=== PATIENT | male | born 1985 ===

== ENCOUNTER 2017-01-21 15:44 | Emergency (ER) | payer MEDICAID, OTHER ==
[2017-01-21 15:44] VITALS: BMI 25.1
[2017-01-21 15:51] VITALS: RESP 18
[2017-01-21] MEDS ORDERED: Lidocaine 1% Inj (20ml) INFIL STA (16:13)
[2017-01-21] MEDS ORDERED: Bacitracin 500 Units/gm Oint Foilpak UD TOP ONE (16:13)
[2017-01-21] MEDS ORDERED: Bacitracin 500 Units/gm Oint Foilpak UD ONE (16:17)
[2017-01-21] MEDS ORDERED: Lidocaine 1% Inj (20ml) ONE (16:20)
--- NOTE | 2017-01-21 16:25 | C.PDOC ---
History Of Present Illness 31 year old male presents to the ED with complaints of a cut to his right index finger sustained just prior to arrival. Patient states while throwing away the garbage, a porcelain doll and cut his hand. He notes he received a tetanus shot " 2-3 years ago." Patient denies changes to sensation or other injuries. Time Seen by Provider: 01/21/17 16:01 Chief Complaint (Nursing): Abnormal Skin Integrity History Per: Patient History/Exam Limitations: no limitations Onset/Duration Of Symptoms: Hrs Current Symptoms Are (Timing): Still Present Location Of Injury: Right: Hand (index finger) Quality Of Symptoms: Painful, Other (bleeding) Recent travel outside of the [place]: No Past Medical History Reviewed: Historical Data, Nursing Documentation, Vital Signs Vital Signs: Last Vital Signs Temp 98.2 F 01/21/17 18:27 Pulse 84 01/21/17 18:27 Resp 18 01/21/17 18:27 BP 116/74 01/21/17 18:27 Pulse Ox 98 01/21/17 21:12 - Medical History PMH: Diabetes Surgical History: Tonsillectomy Family History: States: Unknown Family Hx - Social History Hx Alcohol Use: No Hx Substance Use: Yes (marijuana) - Immunization History Hx Tetanus Toxoid Vaccination: No Hx Influenza Vaccination: No Hx Pneumococcal Vaccination: No Review Of Systems Constitutional: Negative for: Fever, Chills Cardiovascular: Negative for: Chest Pain Respiratory: Negative for: Shortness of Breath Gastrointestinal: Negative for: Nausea Musculoskeletal: Positive for: Hand Pain (right index finger laceration ) Neurological: Negative for: Weakness, Numbness Physical Exam - Physical Exam Appears: Non-toxic Skin: Warm, Dry, Other (4 cm V-shaped laceration to the right index finger) Head: Atraumatic, Normacephalic Eye(s): bilateral: Normal Inspection, EOMI Nose: Normal Oral Mucosa: Moist Neck: Normal ROM, Supple Chest: Symmetrical, No Deformity Respiratory: No Accessory Muscle Use Extremity: Normal ROM, Tenderness, Capillary Refill (< 2 sec), No Swelling Pulses: Left Radial: Normal, Right Radial: Normal Neurological/Psych: Oriented x3, Normal Speech, Normal Cognition, Normal Motor, Normal Sensation ED Course And Treatment O2 Sat by Pulse Oximetry: 98 (room air) - Other Rad Right Index Finger X-Ray X-Ray: Viewed By Me, Read By Radiologist Interpretation: IMPRESSION: Soft tissue laceration and swelling at the level of the mid to distal posterior 2nd digit. No acute displaced fracture identified. Instructed patient on proper wound care and importance of following up for suture removal in 7-10 days. Following laceration repair, finger splint was applied by technical marketing engineer. Progress Note: Finger splint applied by swedish masseuse. Laceration - Laceration Repair Right Index Finger Wound Length (In cm): 4cm Description Of Wound: Irregular (irregular flab ) Wound Cleansed With: Betadine, Sterile Saline Anesthesia: Lidocaine 2%, With Epi Wound Examination: Irrigated With Saline, No FB With Wound Exploration, No Tendon Injury With Wound Exploration Wound Debridement/Revision: Wound Debrided Wound Closure: Suture (8) Suture Technique And Material Used: Interrupted, Prolene (5-0 ) Wound Complexity: Simple Disposition - Disposition Disposition: HOME/ ROUTINE Disposition Time: 18:14 Condition: STABLE Additional Instructions: Wound check in 2 days. Suture removal in 10 days. Return to ER if symptoms persist or worsen. Instructions: Finger Laceration (ED) Forms: [facility] (Kazakh) - Clinical Impression Clinical Impression: Finger laceration - Scribe Statement The provider has reviewed the documentation as recorded by the Scribe Hayley Beltran All medical record entries made by the Scribe were at my direction and personally dictated by me. I have reviewed the chart and agree that the record accurately reflects my personal performance of the history, physical exam, medical decision making, and the department course for this patient. I have also personally directed, reviewed, and agree with the discharge instructions and disposition.
--- NOTE | 2017-01-21 16:47 | RAD ---
PROCEDURE: Right Index finger radiographs. HISTORY: trauma COMPARISON: None available. FINDINGS: RIGHT INDEX FINGER: Unremarkable right 2nd digit without acute displaced fracture. Remainder of the right hand (as seen on the AP view) grossly intact. JOINTS: No dislocation. SOFT TISSUES: Soft tissue laceration and swelling at the level of the mid to distal posterior 2nd digit. OTHER FINDINGS: None. IMPRESSION: Soft tissue laceration and swelling at the level of the mid to distal posterior 2nd digit. No acute displaced fracture identified.
[2017-01-21 18:28] VITALS: BP 116/74; PULSE 84; TEMP 98.2
[2017-01-21 20:36] VITALS: O2SAT 98
== END 2017-01-21 18:27 | disposition home or self-care (01) ==
LOC: C.ER 15:44
DX: S61.210A Laceration without foreign body of right index finger without damage to nail, initial encounter (principal); W45.8XXA Other foreign body or object entering through skin, initial encounter